=== PATIENT | female | born 1965 | race Caucasian/White ===

== ENCOUNTER → 2020-12-20 11:54 | Outpatient (BNVA) | payer BC, SELFPAY | PROVIDERS: Visit Provider Orthopaedic Surgery | DX: M43.16 Spondylolisthesis, lumbar region (principal) | CPT/HCPCS: 72110 ==

== ENCOUNTER 2021-01-20 12:33 | Outpatient (CLI) | payer BC, SELFPAY ==
--- NOTE | 2021-01-20 13:00 | MR_ITS ---
WS: [id number] MRI LUMBAR SPINE NONCONTRAST HISTORY: M43.16 - Spondylolisthesis, lumbar region COMPARISON: Lumbar spine radiographs 12/20/2020 TECHNIQUE: Sagittal and axial multisequence imaging is submitted. Mild increase in the lower lumbar lordosis. L5 anterolisthesis by 6 mm. L4 retrolisthesis by 3 mm. Th ere is disc narrowing and desiccation. No acute fractures. Conus terminates normally at L1-2 disc level. L1-L2: Mild disc bulge. No discrete protrusion. Mild facet and ligamentum flavum hypertrophy. No sten osis. L2-L3: Mild asymmetric facet joint arthritis, LEFT greater than RIGHT. No significant stenosis. There is slight encroachment into the posterior lateral LEFT thecal sac by LEFT facet joint arthritis. L3-L4: Mild asymmetric disc bulging with mild ligamentum flavum and facet arthritis. Mild encroachmen t into the LEFT subarticular recess. Very mild narrowing of the LEFT subarticular recess and encroach ment upon the L4 nerve root. No high-grade stenosis. L4-L5: Annular disc bulging and osteophytic ridging. Severe facet joint arthritis and ligamentum flav um hypertrophy with fluid in the facet joints. Moderate central and bilateral subarticular recess j carlos nosis and mild foraminal stenosis. Moderate encroachment upon the L5 nerve roots bilaterally. L5-S1: Mild annular disc bulging with facet joint arthritis. Mild bilateral foraminal stenosis. No retroperitoneal abnormality. MR/MR lumbar spine wo con* [id number] IMPRESSION: 1. Moderate central and bilateral subarticular recess stenosis at L4-5 with ad vanced facet joint arthritis. Mild encroachment upon the traversing L5 nerve ro ots. 2. Increase fluid in the facet joints at L4-5 with widening, greatest on the L EFT. Acute synovitis. 3. Mild asymmetric facet joint arthritis at L2-3 and L3-4. 4. Mild LEFT subarticular recess stenosis at L3-4 with encroachment upon the t raversing L4 nerve root. 5. Mild foraminal stenosis at L5-S1. 6. Grade 1 anterolisthesis of L5.
== END 2021-01-20 12:34 | disposition home or self-care (01) ==
LOC: RADSHAW 12:39
PROVIDERS: Visit Provider Orthopaedic Surgery
DX: M43.16 Spondylolisthesis, lumbar region (principal); M48.07 Spinal stenosis, lumbosacral region; M48.061 Spinal stenosis, lumbar region without neurogenic claudication; M47.816 Spondylosis without myelopathy or radiculopathy, lumbar region
CPT/HCPCS: 72148